=== PATIENT | female | born 1930 | race Caucasian/White ===

== ENCOUNTER 2017-10-11 22:57 | Emergency (ER) | payer MEDICARE, BC ==
[2017-10-12] MEDS: MECLIZINE 12.5 MG TAB PO (00:49)
== END 2017-10-12 02:34 | disposition home or self-care (01) ==
LOC: E/R 22:57
DX: R42 Dizziness and giddiness (principal); R40.2252 Coma scale, best verbal response, oriented, at arrival to emergency department; H60.21 Malignant otitis externa, right ear; H66.91 Otitis media, unspecified, right ear; S49.92XA Unspecified injury of left shoulder and upper arm, initial encounter; S70.01XA Contusion of right hip, initial encounter; E03.9 Hypothyroidism, unspecified; J45.909 Unspecified asthma, uncomplicated; R40.2142 Coma scale, eyes open, spontaneous, at arrival to emergency department; R40.2362 Coma scale, best motor response, obeys commands, at arrival to emergency department; W18.39XA Other fall on same level, initial encounter; Y92.9 Unspecified place or not applicable; Z79.84 Long term (current) use of oral hypoglycemic drugs; Z79.01 Long term (current) use of anticoagulants
CPT/HCPCS: 70450; 73060; 73510; 99284-25

== ENCOUNTER 2018-11-24 23:23 | Inpatient (IN) | payer MEDICARE, BC ==
[2018-11-25 01:56] LABS: ADD MAN DIFF? NO
[2018-11-25 01:57] LABS: WHITE BLOOD COUNT 11.4 10^3/ul (4.8-10.8)
[2018-11-25 01:57] LABS: BASOPHILS % 0.4 % (0.0-2.0); EOSINOPHILS % 0.3 % (0.0-7.0); HEMATOCRIT 33.8 % (37.0-47.0); LYMPHOCYTES # 0.8 10^3/ul (0.8-2.9); LYMPHOCYTES % 7.1 % (15.0-51.0); MEAN CORPUSCULAR HEMOGLOBIN 31.9 pg (29.0-33.0); MEAN CORPUSCULAR HGB CONC 32.5 g/dl (32.0-37.0); MEAN PLATELET VOLUME 10.8 fl (7.4-10.4); MONOCYTES % 8.8 % (0.0-11.0); NEUTROPHIL # 9.4 10^3/ul (1.6-7.5); NEUTROPHILS % 82.3 % (39.0-77.0); PLATELET COUNT 256 10^3/UL (140-415); RED BLOOD COUNT 3.45 10^6/ul (4.20-5.40); RED CELL DISTRIBUTION WIDTH 13.4 % (11.5-14.5)
[2018-11-25 02:14] LABS: ALANINE AMINOTRANSFERASE 26 IU/L (13-69); ALBUMIN 3.7 g/dl (3.3-4.9); ALBUMIN/GLOBULIN RATIO 0.97; ALKALINE PHOSPHATASE 106 IU/L (42-121); ANION GAP 10 (5-13); ASPARTATE AMINO TRANSFERASE 33 IU/L (15-46); BILIRUBIN,INDIRECT 0.3 mg/dl (0-1.1); BILIRUBIN,TOTAL 0.3 mg/dl (0.2-1.3); BLOOD UREA NITROGEN 67 mg/dl (7-20); CALCIUM 9.5 mg/dl (8.4-10.2); CARBON DIOXIDE 33 mmol/L (21-31); CHLORIDE 99 mmol/L (97-110); CREATININE 1.76 mg/dl (0.44-1.00); GLUCOSE 175 mg/dl (70-220); SODIUM 142 mmol/L (135-144); TOTAL PROTEIN 7.5 g/dl (6.1-8.1)
[2018-11-25 02:26] LABS: B-TYPE NATRIURETIC PEPTIDE 11900 PG/ML (0-450); TROPONIN-I < 0.012 ng/ml (0.000-0.120)
[2018-11-25] MEDS: FUROSEMIDE 40 MG INJ IV ×3 (03:00→03:27)
[2018-11-25] MEDS ORDERED: ALBUTEROL/IPRATROPIUM (NEB) 3 ML AMP HHN (05:00)
[2018-11-25] MEDS ORDERED: NACL 0.9% 3 ML SYG IV (05:00)
[2018-11-25] MEDS ORDERED: NITROGLYCERIN (SL) 0.4 MG TAB SL (05:00)
[2018-11-25] MEDS ORDERED: GLUCOSE GEL 15 GRAM TUBE PO ×2 (05:30)
[2018-11-25] MEDS ORDERED: GLUCAGON 1 MG INJ IM (05:30)
[2018-11-25] MEDS ORDERED: GLUCOSE GEL 15 GRAM TUBE BUCCAL (05:30)
[2018-11-25] MEDS ORDERED: DEXTROSE 50% 50 ML SYRINGE IV (05:30)
[2018-11-25 05:56] LABS: CREATINE KINASE 21 IU/L (23-200)
[2018-11-25 06:07] LABS: CK-MB 0.42 ng/ml (0.0-2.4); TROPONIN-I 0.025 ng/ml (0.000-0.120)
[2018-11-25 06:26] LABS: THYROID STIMULATING HORMONE 0.942 MIU/L (0.465-4.680)
[2018-11-25 06:33] LABS: INR 1.69; PT RATIO 1.6
[2018-11-25 06:34] LABS: PARTIAL THROMBOPLASTIN TIME 44.7 Sec (23.0-35.0)
[2018-11-25] MEDS: FUROSEMIDE 20 MG TAB PO ×2 (07:00→17:44)
[2018-11-25] MEDS: PANTOPRAZOLE (EC) 40 MG TAB PO (07:17)
[2018-11-25 07:30] LABS: IRON 23 ug/dl (35-150)
[2018-11-25 07:39] LABS: % IRON SATURATION 12 % SAT (22-52); TOTAL IRON BINDING CAPACITY 196 ug/dl (241-421)
[2018-11-25] MEDS ORDERED: FUROSEMIDE 20 MG TAB PO (09:00)
[2018-11-25] MEDS: LEVOTHYROXINE 75 MCG TAB PO (09:07)
[2018-11-25] MEDS: MECLIZINE 25 MG TAB PO ×3 (09:07→22:28)
[2018-11-25] MEDS: FERROUS SULFATE (EC) 325 MG TAB PO ×2 (09:07→22:28)
[2018-11-25] MEDS: POLYETHYLENE GLYCOL 17 GM PACKET PO (09:07)
[2018-11-25] MEDS: DOCUSATE SODIUM 250 MG CAP PO (09:07)
[2018-11-25] MEDS: HEPARIN 5,000 UNIT/1 ML VIAL SC ×2 (09:19→22:31)
[2018-11-25] MEDS: SOTALOL 80 MG TAB PO ×2 (09:29→22:29)
[2018-11-25] MEDS: LUBIPROSTONE 24 MCG CAP PO ×2 (09:29→17:43)
[2018-11-25] MEDS: INSULIN ASPART [NOVOLOG] 3 ML PEN SC ×4 (09:42→21:00)
[2018-11-25 10:43] LABS: CREATINE KINASE < 20 IU/L (23-200)
[2018-11-25 10:53] LABS: CK-MB 0.44 ng/ml (0.0-2.4); TROPONIN-I 0.015 ng/ml (0.000-0.120)
[2018-11-25] MEDS: DOCUSATE SODIUM 10 MG/ML (10ML CUP) PO (14:31)
[2018-11-25 15:33] LABS: SODIUM,URINE RANDOM < 13 mmol/L (30-90)
[2018-11-25 15:35] LABS: CREATININE,URINE RANDOM 66.83 mg/dl (20-320); PROTEIN/CREAT RATIO 0.31 RATIO
[2018-11-25] MEDS ORDERED: HYPROMELLOSE OP (16:30)
[2018-11-25] MEDS ORDERED: GLYCERIN OP (16:30)
[2018-11-25] MEDS ORDERED: PEG OP (16:30)
[2018-11-25] MEDS: WARFARIN 3 MG TAB PO (16:45)
[2018-11-25] MEDS: GENTAMICIN 0.3% 5 ML OPH LEFT EYE ×2 (17:00→22:29)
[2018-11-25] MEDS: APIXABAN 5 MG TABLET PO (22:28)
[2018-11-25] MEDS: PATIENT'S OWN MEDICATION BOTH EYES ×2 (22:30)
[2018-11-25] MEDS: INSULIN GLARGINE [LANTus] (100 UNITS/ML) SYG SC (22:52)
[2018-11-26] MEDS: GENTAMICIN 0.3% 5 ML OPH LEFT EYE ×3 (00:56→09:45)
[2018-11-26] MEDS: ACCU-CHEK XX (02:00)
[2018-11-26] MEDS: BENZONATATE 100 MG CAP PO ×2 (03:35→09:49)
[2018-11-26] MEDS: ALBUTEROL/IPRATROPIUM (NEB) 3 ML AMP HHN ×4 (04:30→20:17)
[2018-11-26] MEDS: ACETYLCYSTEINE 20% 4 ML VIAL NEB ×4 (04:41→20:17)
[2018-11-26] MEDS: PANTOPRAZOLE (EC) 40 MG TAB PO (05:10)
[2018-11-26] MEDS: LEVOTHYROXINE 75 MCG TAB PO (05:10)
[2018-11-26 05:57] LABS: HEMATOCRIT 32.6 % (37.0-47.0); HEMOGLOBIN 10.9 g/dl (12.0-16.0); MEAN CORPUSCULAR HEMOGLOBIN 32.2 pg (29.0-33.0); MEAN CORPUSCULAR HGB CONC 33.4 g/dl (32.0-37.0); MEAN CORPUSCULAR VOLUME 96.2 fl (82.0-101.0); PLATELET COUNT 277 10^3/UL (140-415); RED BLOOD COUNT 3.39 10^6/ul (4.20-5.40); RED CELL DISTRIBUTION WIDTH 13.4 % (11.5-14.5)
[2018-11-26 05:59] LABS: ADD MAN DIFF? YES; POSITIVE DIFF @See below
[2018-11-26 06:13] LABS: INR 1.86; PROTIME 21.5 Sec (11.9-14.9); PT RATIO 1.7
[2018-11-26 06:27] LABS: B-TYPE NATRIURETIC PEPTIDE 8970 PG/ML (0-450)
[2018-11-26] MEDS ORDERED: VANCOMYCIN IV PER PHARMACY XX (06:30)
[2018-11-26 06:33] LABS: URIC ACID 9.9 mg/dl (3.1-7.9)
[2018-11-26 06:36] LABS: ALANINE AMINOTRANSFERASE 21 IU/L (13-69); ALBUMIN 3.4 g/dl (3.3-4.9); ALBUMIN/GLOBULIN RATIO 0.91; ALKALINE PHOSPHATASE 126 IU/L (42-121); ANION GAP 10 (5-13); ASPARTATE AMINO TRANSFERASE 30 IU/L (15-46); BILIRUBIN,INDIRECT 0.4 mg/dl (0-1.1); BILIRUBIN,TOTAL 0.4 mg/dl (0.2-1.3); BLOOD UREA NITROGEN 49 mg/dl (7-20); CALCIUM 9.3 mg/dl (8.4-10.2); CARBON DIOXIDE 33 mmol/L (21-31); CHLORIDE 98 mmol/L (97-110); CHOL/HDL RATIO 4.2 RATIO; CHOLESTEROL 126 mg/dl (100-200); CREATININE 1.54 mg/dl (0.44-1.00); GLUCOSE 167 mg/dl (70-220); HDL CHOLESTEROL 30 mg/dl (33-92); LDL CHOLESTEROL,CALCULATED 71 mg/dl; MAGNESIUM 1.8 mg/dl (1.7-2.5); POTASSIUM 4.1 mmol/L (3.5-5.1); SODIUM 141 mmol/L (135-144); TOTAL PROTEIN 7.1 g/dl (6.1-8.1); TRIGLYCERIDES 125 mg/dl (0-149)
[2018-11-26 06:37] LABS: CREATINE KINASE < 20 IU/L (23-200)
[2018-11-26] MEDS: INSULIN ASPART [NOVOLOG] 3 ML PEN SC ×4 (08:00→21:00)
[2018-11-26] MEDS: LUBIPROSTONE 24 MCG CAP PO ×2 (08:00→17:28)
[2018-11-26] MEDS: VANCOMYCIN 1 GM 250 ML IVPB (08:48)
[2018-11-26] MEDS: FUROSEMIDE 20 MG INJ IV (08:50)
[2018-11-26] MEDS: HEPARIN 5,000 UNIT/1 ML VIAL SC (08:55)
[2018-11-26] MEDS: PATIENT'S OWN MEDICATION BOTH EYES ×3 (09:43→21:00)
[2018-11-26] MEDS: DOCUSATE SODIUM 10 MG/ML (10ML CUP) PO (09:48)
[2018-11-26] MEDS: POLYETHYLENE GLYCOL 17 GM PACKET PO (09:48)
[2018-11-26] MEDS: MECLIZINE 25 MG TAB PO ×3 (09:49→21:00)
[2018-11-26] MEDS: FERROUS SULFATE (EC) 325 MG TAB PO ×2 (09:49→21:00)
[2018-11-26] MEDS: APIXABAN 5 MG TABLET PO ×2 (09:49→21:00)
[2018-11-26] MEDS: SOTALOL 80 MG TAB PO ×2 (09:50→21:00)
[2018-11-26] MEDS: PIPER-TAZO 3.375 GM IV (PMX) 100 ML IVPB ×3 (09:52→22:02)
[2018-11-26] MEDS ORDERED: CARBOXYMETHYLCELLULOSE 0.5% 0.4 ML OPH BOTH EYES (10:00)
[2018-11-26] MEDS: LINAGLIPTIN 5 MG TABLET PO (10:30)
[2018-11-26] MEDS: ALLOPURINOL 100 MG TAB PO (10:30)
[2018-11-26] MEDS ORDERED: LEVOFLOXACIN 500 MG TAB PO (10:30)
[2018-11-26 10:45] LABS: ANISOCYTOSIS 1+ (0-0); BAND NEUTROPHILS % (M) 16 % (0-4); GIANT THROMBO% (M) 2 % (0-0); LYMPHOCYTES #M 0.5 10^3/ul (0.8-2.9); LYMPHOCYTES % (M) 4 % (15-51); MONOCYTE #M 1.3 10^3/ul (0.3-0.9); MONOCYTES % (M) 10 % (0-11); OVALOCYTES 1+ (0-0); PLATELET ESTIMATE NORMAL; PROMYELOCYTES #M 0.1 10^3/ul (0-0); PROMYELOCYTES % (M) 1 % (0-0); REACTIVE LYMPHOCYTES #M 0.1 10^3/ul (0.0-0.0); REACTIVE LYMPHOCYTES% (M) 1 % (0-0); SEG NEUT #M 9.1 10^3/ul (1.6-7.5); SEGMENTED NEUTROPHILS (M) % 68 % (39-77); SMUDGE%M 19 % (0-0)
[2018-11-26 11:00] LABS: AADO2 Arterial 15.6 mmHg (7.0-24.0); Arterial Base Excess 6.5 mmol/L (-3.0-3); Arterial Blood Gas Oxygen Sat 98.6 mmHG (95.0-100.0); Arterial COHb 0.3 % (0.0-3.0); Arterial HCO3 30.8 mmol/L (22.0-26.0); Arterial MetHb 0.3 % (0.0-1.5); Arterial pCO2 43.3 mmhg (35-45); MODE NASAL CANNULA; Site Right Brachial
[2018-11-26] MEDS: GENTAMICIN 0.3% 5 ML OPH RIGHT EYE ×3 (12:41→22:21)
[2018-11-26] MEDS ORDERED: metroNIDAZOLE 500 MG TAB PO (14:00)
[2018-11-26] MEDS: INSULIN GLARGINE [LANTus] (100 UNITS/ML) SYG SC (22:03)
[2018-11-26] MEDS: DEXTROSE 5%-0.45% NACL 1,000 ML IV (22:21)
[2018-11-27] MEDS: ALBUTEROL/IPRATROPIUM (NEB) 3 ML AMP HHN ×6 (01:25→20:21)
[2018-11-27] MEDS: ACETYLCYSTEINE 20% 4 ML VIAL NEB (01:25)
[2018-11-27] MEDS: GENTAMICIN 0.3% 5 ML OPH RIGHT EYE ×6 (01:42→21:19)
[2018-11-27] MEDS: ACCU-CHEK XX (02:00)
[2018-11-27] MEDS: INSULIN ASPART [NOVOLOG] 3 ML PEN SC ×5 (02:24→21:47)
[2018-11-27] MEDS: PANTOPRAZOLE (EC) 40 MG TAB PO (06:00)
[2018-11-27] MEDS: PIPER-TAZO 3.375 GM IV (PMX) 100 ML IVPB ×3 (06:25→21:20)
[2018-11-27 06:27] LABS: ADD MAN DIFF? NO
[2018-11-27 06:31] LABS: BASOPHILS % 0.2 % (0.0-2.0); EOSINOPHILS % 0.2 % (0.0-7.0); HEMATOCRIT 33.9 % (37.0-47.0); HEMOGLOBIN 10.9 g/dl (12.0-16.0); LYMPHOCYTES % 10.7 % (15.0-51.0); MEAN CORPUSCULAR HEMOGLOBIN 31.1 pg (29.0-33.0); MEAN CORPUSCULAR HGB CONC 32.2 g/dl (32.0-37.0); MEAN CORPUSCULAR VOLUME 96.6 fl (82.0-101.0); MEAN PLATELET VOLUME 11.1 fl (7.4-10.4); MONOCYTE # 0.6 10^3/ul (0.3-0.9); MONOCYTES % 6.1 % (0.0-11.0); NEUTROPHIL # 7.8 10^3/ul (1.6-7.5); PLATELET COUNT 275 10^3/UL (140-415); RED BLOOD COUNT 3.51 10^6/ul (4.20-5.40); RED CELL DISTRIBUTION WIDTH 13.6 % (11.5-14.5)
[2018-11-27 06:31] LABS: WHITE BLOOD COUNT 9.5 10^3/ul (4.8-10.8)
[2018-11-27] MEDS: LEVOTHYROXINE 75 MCG TAB PO (06:45)
[2018-11-27 07:15] LABS: ANION GAP 12 (5-13); BLOOD UREA NITROGEN 55 mg/dl (7-20); CALCIUM 8.8 mg/dl (8.4-10.2); CARBON DIOXIDE 29 mmol/L (21-31); CHLORIDE 105 mmol/L (97-110); GLUCOSE 132 mg/dl (70-220); POTASSIUM 3.4 mmol/L (3.5-5.1); SODIUM 146 mmol/L (135-144)
[2018-11-27] MEDS: LUBIPROSTONE 24 MCG CAP PO ×2 (08:00→18:59)
[2018-11-27] MEDS: PATIENT'S OWN MEDICATION BOTH EYES ×3 (09:00→21:20)
[2018-11-27] MEDS: SOTALOL 80 MG TAB PO ×2 (10:45→21:20)
[2018-11-27] MEDS: POLYETHYLENE GLYCOL 17 GM PACKET PO (10:46)
[2018-11-27] MEDS: APIXABAN 5 MG TABLET PO ×2 (10:46→21:21)
[2018-11-27] MEDS: ALLOPURINOL 100 MG TAB PO (10:46)
[2018-11-27] MEDS: FERROUS SULFATE (EC) 325 MG TAB PO ×2 (10:47→21:21)
[2018-11-27] MEDS: DOCUSATE SODIUM 10 MG/ML (10ML CUP) PO (10:47)
[2018-11-27] MEDS: MECLIZINE 25 MG TAB PO ×3 (10:47→21:00)
[2018-11-27] MEDS: LINAGLIPTIN 5 MG TABLET PO (10:47)
[2018-11-27] MEDS: POTASSIUM CHLORIDE (SR) 20 MEQ TAB PO (12:48)
[2018-11-27] MEDS: DEXTROSE 5%-0.45% NACL 500 ML IV (12:50)
[2018-11-27] MEDS: INSULIN GLARGINE [LANTus] (100 UNITS/ML) SYG SC (21:47)
[2018-11-27] MEDS: ACETAMINOPHEN 325 MG TAB PO (23:12)
[2018-11-28] MEDS: GENTAMICIN 0.3% 5 ML OPH RIGHT EYE ×6 (01:00→20:19)
[2018-11-28] MEDS: DEXTROSE 5%-0.45% NACL 500 ML IV ×3 (01:30→18:11)
[2018-11-28] MEDS: ALBUTEROL/IPRATROPIUM (NEB) 3 ML AMP HHN ×6 (01:52→21:08)
[2018-11-28] MEDS: ACCU-CHEK XX (02:00)
[2018-11-28] MEDS: PIPER-TAZO 3.375 GM IV (PMX) 100 ML IVPB ×3 (05:05→20:17)
[2018-11-28] MEDS: PANTOPRAZOLE (EC) 40 MG TAB PO (05:05)
[2018-11-28] MEDS: LEVOTHYROXINE 75 MCG TAB PO (05:05)
[2018-11-28 06:12] LABS: ADD MAN DIFF? NO
[2018-11-28 06:17] LABS: BASOPHIL # 0.1 10^3/ul (0.0-0.1); BASOPHILS % 0.6 % (0.0-2.0); EOSINOPHILS # 0.1 10^3/ul (0.0-0.5); EOSINOPHILS % 0.7 % (0.0-7.0); HEMATOCRIT 31.5 % (37.0-47.0); HEMOGLOBIN 9.9 g/dl (12.0-16.0); LYMPHOCYTES # 0.9 10^3/ul (0.8-2.9); LYMPHOCYTES % 9.5 % (15.0-51.0); MEAN CORPUSCULAR HEMOGLOBIN 31.6 pg (29.0-33.0); MEAN CORPUSCULAR HGB CONC 31.4 g/dl (32.0-37.0); MEAN CORPUSCULAR VOLUME 100.6 fl (82.0-101.0); MONOCYTE # 0.6 10^3/ul (0.3-0.9); MONOCYTES % 7.1 % (0.0-11.0); NEUTROPHIL # 7.3 10^3/ul (1.6-7.5); NEUTROPHILS % 80.9 % (39.0-77.0); PLATELET COUNT 269 10^3/UL (140-415); RED BLOOD COUNT 3.13 10^6/ul (4.20-5.40); RED CELL DISTRIBUTION WIDTH 13.7 % (11.5-14.5)
[2018-11-28] MEDS: INSULIN ASPART [NOVOLOG] 3 ML PEN SC ×4 (06:33→20:50)
[2018-11-28] MEDS: DEXTROSE 50% 50 ML SYRINGE IV (06:36)
[2018-11-28 07:12] LABS: ANION GAP 6 (5-13); BLOOD UREA NITROGEN 52 mg/dl (7-20); CALCIUM 8.8 mg/dl (8.4-10.2); CARBON DIOXIDE 29 mmol/L (21-31); CHLORIDE 107 mmol/L (97-110); CREATININE 1.54 mg/dl (0.44-1.00); GLUCOSE 61 mg/dl (70-220); POTASSIUM 3.6 mmol/L (3.5-5.1); SODIUM 142 mmol/L (135-144)
[2018-11-28] MEDS: DOCUSATE SODIUM 10 MG/ML (10ML CUP) PO (08:52)
[2018-11-28] MEDS: POLYETHYLENE GLYCOL 17 GM PACKET PO (08:52)
[2018-11-28] MEDS: ALLOPURINOL 100 MG TAB PO (08:52)
[2018-11-28] MEDS: APIXABAN 5 MG TABLET PO ×2 (08:52→20:18)
[2018-11-28] MEDS: LUBIPROSTONE 24 MCG CAP PO ×2 (08:52→18:49)
[2018-11-28] MEDS: SOTALOL 80 MG TAB PO ×2 (08:53→20:18)
[2018-11-28] MEDS: FERROUS SULFATE (EC) 325 MG TAB PO ×2 (08:54→20:17)
[2018-11-28] MEDS: LINAGLIPTIN 5 MG TABLET PO (08:54)
[2018-11-28] MEDS: PATIENT'S OWN MEDICATION BOTH EYES ×3 (09:00→20:19)
[2018-11-28] MEDS: MECLIZINE 25 MG TAB PO ×3 (10:33→20:18)
[2018-11-28] MEDS: VANCOMYCIN 750 MG (PMX) 250 ML IVPB (10:40)
[2018-11-28] MEDS ORDERED: POTASSIUM CHLORIDE (SR) 20 MEQ TAB PO (14:59)
[2018-11-28] MEDS: POTASSIUM CHLORIDE 100 ML IVPB (18:49)
[2018-11-28] MEDS: INSULIN GLARGINE [LANTus] (100 UNITS/ML) SYG SC (20:49)
[2018-11-28] MEDS: HYDROCODONE/HOMATROPINE 5ML CUP PO (21:20)
[2018-11-29] MEDS: GENTAMICIN 0.3% 5 ML OPH RIGHT EYE ×6 (01:00→21:00)
[2018-11-29] MEDS: ALBUTEROL/IPRATROPIUM (NEB) 3 ML AMP HHN ×6 (01:35→20:31)
[2018-11-29] MEDS: ACCU-CHEK XX (02:00)
[2018-11-29] MEDS: DEXTROSE 5%-0.45% NACL 500 ML IV ×2 (02:07→21:38)
[2018-11-29] MEDS: PIPER-TAZO 3.375 GM IV (PMX) 100 ML IVPB ×3 (05:32→21:48)
[2018-11-29] MEDS: LEVOTHYROXINE 75 MCG TAB PO (05:34)
[2018-11-29] MEDS: PANTOPRAZOLE (EC) 40 MG TAB PO (05:35)
[2018-11-29 06:26] LABS: ADD MAN DIFF? NO
[2018-11-29 06:31] LABS: BASOPHIL # 0.1 10^3/ul (0.0-0.1); BASOPHILS % 0.7 % (0.0-2.0); EOSINOPHILS # 0.1 10^3/ul (0.0-0.5); HEMATOCRIT 32.5 % (37.0-47.0); HEMOGLOBIN 10.3 g/dl (12.0-16.0); LYMPHOCYTES # 0.9 10^3/ul (0.8-2.9); LYMPHOCYTES % 12.4 % (15.0-51.0); MEAN CORPUSCULAR HEMOGLOBIN 31.7 pg (29.0-33.0); MEAN CORPUSCULAR HGB CONC 31.7 g/dl (32.0-37.0); MEAN PLATELET VOLUME 10.8 fl (7.4-10.4); MONOCYTE # 0.5 10^3/ul (0.3-0.9); MONOCYTES % 7.7 % (0.0-11.0); NEUTROPHIL # 5.3 10^3/ul (1.6-7.5); NEUTROPHILS % 75.9 % (39.0-77.0); PLATELET COUNT 270 10^3/UL (140-415); RED BLOOD COUNT 3.25 10^6/ul (4.20-5.40); RED CELL DISTRIBUTION WIDTH 13.6 % (11.5-14.5)
[2018-11-29] MEDS: INSULIN ASPART [NOVOLOG] 3 ML PEN SC ×4 (07:00→21:00)
[2018-11-29 07:17] LABS: ANION GAP 8 (5-13); BLOOD UREA NITROGEN 43 mg/dl (7-20); CALCIUM 8.9 mg/dl (8.4-10.2); CARBON DIOXIDE 30 mmol/L (21-31); CHLORIDE 108 mmol/L (97-110); CREATININE 1.63 mg/dl (0.44-1.00); GLUCOSE 65 mg/dl (70-220); POTASSIUM 3.6 mmol/L (3.5-5.1); SODIUM 146 mmol/L (135-144)
[2018-11-29] MEDS: LUBIPROSTONE 24 MCG CAP PO ×2 (08:00→18:00)
[2018-11-29] MEDS: DOCUSATE SODIUM 10 MG/ML (10ML CUP) PO (08:44)
[2018-11-29] MEDS: FUROSEMIDE 20 MG INJ IV ×2 (08:45→17:58)
[2018-11-29] MEDS: FERROUS SULFATE (EC) 325 MG TAB PO ×2 (08:46→21:35)
[2018-11-29] MEDS: SOTALOL 80 MG TAB PO ×2 (08:46→21:34)
[2018-11-29] MEDS: LINAGLIPTIN 5 MG TABLET PO (08:46)
[2018-11-29] MEDS: APIXABAN 5 MG TABLET PO ×2 (08:46→21:34)
[2018-11-29] MEDS: POLYETHYLENE GLYCOL 17 GM PACKET PO (08:46)
[2018-11-29] MEDS: ALLOPURINOL 100 MG TAB PO (08:46)
[2018-11-29] MEDS: MECLIZINE 25 MG TAB PO ×3 (08:46→21:36)
[2018-11-29] MEDS: PATIENT'S OWN MEDICATION BOTH EYES ×3 (08:47→21:00)
[2018-11-29] MEDS: BENZONATATE 100 MG CAP PO (17:32)
[2018-11-29] MEDS: INSULIN GLARGINE [LANTus] (100 UNITS/ML) SYG SC (20:00)
[2018-11-29] MEDS: ACETYLCYSTEINE 20% 4 ML VIAL NEB (20:43)
[2018-11-30] MEDS: ALBUTEROL/IPRATROPIUM (NEB) 3 ML AMP HHN ×6 (00:27→21:59)
[2018-11-30] MEDS: BENZONATATE 100 MG CAP PO (01:08)
[2018-11-30] MEDS: GENTAMICIN 0.3% 5 ML OPH RIGHT EYE ×6 (01:26→20:25)
[2018-11-30] MEDS: ACCU-CHEK XX (01:29)
[2018-11-30] MEDS: PANTOPRAZOLE (EC) 40 MG TAB PO (05:30)
[2018-11-30] MEDS: LEVOTHYROXINE 75 MCG TAB PO (05:30)
[2018-11-30] MEDS: FUROSEMIDE 20 MG INJ IV ×2 (05:30→17:50)
[2018-11-30] MEDS: PIPER-TAZO 3.375 GM IV (PMX) 100 ML IVPB ×3 (05:30→22:21)
[2018-11-30 06:22] LABS: ADD MAN DIFF? NO
[2018-11-30 06:23] LABS: BASOPHIL # 0.1 10^3/ul (0.0-0.1); BASOPHILS % 0.6 % (0.0-2.0); EOSINOPHILS # 0.1 10^3/ul (0.0-0.5); HEMATOCRIT 32.5 % (37.0-47.0); HEMOGLOBIN 10.5 g/dl (12.0-16.0); LYMPHOCYTES # 0.8 10^3/ul (0.8-2.9); MEAN CORPUSCULAR HEMOGLOBIN 31.9 pg (29.0-33.0); MEAN CORPUSCULAR HGB CONC 32.3 g/dl (32.0-37.0); MEAN CORPUSCULAR VOLUME 98.8 fl (82.0-101.0); MONOCYTE # 0.7 10^3/ul (0.3-0.9); MONOCYTES % 7.9 % (0.0-11.0); NEUTROPHIL # 6.5 10^3/ul (1.6-7.5); NEUTROPHILS % 78.1 % (39.0-77.0); PLATELET COUNT 288 10^3/UL (140-415); RED BLOOD COUNT 3.29 10^6/ul (4.20-5.40); RED CELL DISTRIBUTION WIDTH 13.5 % (11.5-14.5)
[2018-11-30 06:23] LABS: WHITE BLOOD COUNT 8.4 10^3/ul (4.8-10.8)
[2018-11-30 06:51] LABS: ANION GAP 9 (5-13); BLOOD UREA NITROGEN 36 mg/dl (7-20); CALCIUM 8.9 mg/dl (8.4-10.2); CARBON DIOXIDE 31 mmol/L (21-31); CHLORIDE 107 mmol/L (97-110); CREATININE 1.55 mg/dl (0.44-1.00); GLUCOSE 98 mg/dl (70-220); POTASSIUM 3.2 mmol/L (3.5-5.1); SODIUM 147 mmol/L (135-144)
[2018-11-30] MEDS: INSULIN ASPART [NOVOLOG] 3 ML PEN SC ×4 (07:30→20:27)
[2018-11-30] MEDS: ACETYLCYSTEINE 20% 4 ML VIAL NEB ×3 (09:00→21:59)
[2018-11-30] MEDS: MECLIZINE 25 MG TAB PO ×3 (09:00→21:37)
[2018-11-30] MEDS: FERROUS SULFATE (EC) 325 MG TAB PO ×2 (09:07→20:26)
[2018-11-30] MEDS: DOCUSATE SODIUM 10 MG/ML (10ML CUP) PO (09:07)
[2018-11-30] MEDS: SOTALOL 80 MG TAB PO ×2 (09:07→20:27)
[2018-11-30] MEDS: POLYETHYLENE GLYCOL 17 GM PACKET PO (09:08)
[2018-11-30] MEDS: LINAGLIPTIN 5 MG TABLET PO (09:08)
[2018-11-30] MEDS: ALLOPURINOL 100 MG TAB PO (09:08)
[2018-11-30] MEDS: APIXABAN 5 MG TABLET PO ×2 (09:08→20:25)
[2018-11-30] MEDS: VANCOMYCIN 750 MG (PMX) 250 ML IVPB (09:23)
[2018-11-30] MEDS: LUBIPROSTONE 24 MCG CAP PO ×2 (09:23→17:50)
[2018-11-30] MEDS: PATIENT'S OWN MEDICATION BOTH EYES ×3 (09:37→20:31)
[2018-11-30] MEDS: DEXTROSE 5%-0.45% NACL 500 ML IV (16:00)
[2018-11-30] MEDS: ONDANSETRON 4 MG INJ IV (16:21)
[2018-11-30] MEDS: TIOTROPIUM 18 MCG CAPSULE INHA DEV INH (17:50)
[2018-11-30] MEDS: POTASSIUM CHLORIDE 100 ML IVPB (20:23)
[2018-11-30] MEDS: INSULIN GLARGINE [LANTus] (100 UNITS/ML) SYG SC (20:24)
[2018-12-01] MEDS: POTASSIUM CHLORIDE 100 ML IVPB (00:14)
[2018-12-01] MEDS: GENTAMICIN 0.3% 5 ML OPH RIGHT EYE ×6 (00:14→20:54)
[2018-12-01] MEDS: ALBUTEROL/IPRATROPIUM (NEB) 3 ML AMP HHN ×6 (00:39→20:10)
[2018-12-01] MEDS: ACCU-CHEK XX (01:23)
[2018-12-01] MEDS: DEXTROSE 5%-0.45% NACL 500 ML IV ×3 (04:24→22:46)
[2018-12-01] MEDS: PIPER-TAZO 3.375 GM IV (PMX) 100 ML IVPB ×3 (05:49→22:44)
[2018-12-01] MEDS: PANTOPRAZOLE (EC) 40 MG TAB PO (05:49)
[2018-12-01] MEDS: FUROSEMIDE 20 MG INJ IV ×2 (05:54→17:55)
[2018-12-01 05:57] LABS: ADD MAN DIFF? NO
[2018-12-01] MEDS: LEVOTHYROXINE 75 MCG TAB PO (06:00)
[2018-12-01 06:01] LABS: BASOPHILS % 0.5 % (0.0-2.0); EOSINOPHILS % 0.4 % (0.0-7.0); HEMATOCRIT 30.2 % (37.0-47.0); HEMOGLOBIN 9.9 g/dl (12.0-16.0); LYMPHOCYTES % 12.5 % (15.0-51.0); MEAN CORPUSCULAR HEMOGLOBIN 32.2 pg (29.0-33.0); MEAN CORPUSCULAR HGB CONC 32.8 g/dl (32.0-37.0); MEAN CORPUSCULAR VOLUME 98.4 fl (82.0-101.0); MONOCYTE # 0.7 10^3/ul (0.3-0.9); NEUTROPHIL # 6.2 10^3/ul (1.6-7.5); NEUTROPHILS % 76.5 % (39.0-77.0); PLATELET COUNT 271 10^3/UL (140-415); RED BLOOD COUNT 3.07 10^6/ul (4.20-5.40); RED CELL DISTRIBUTION WIDTH 13.8 % (11.5-14.5)
[2018-12-01 06:01] LABS: WHITE BLOOD COUNT 8.2 10^3/ul (4.8-10.8)
[2018-12-01 06:46] LABS: ANION GAP 8 (5-13); BLOOD UREA NITROGEN 39 mg/dl (7-20); CALCIUM 8.3 mg/dl (8.4-10.2); CARBON DIOXIDE 30 mmol/L (21-31); CHLORIDE 108 mmol/L (97-110); CREATININE 1.95 mg/dl (0.44-1.00); GLUCOSE 81 mg/dl (70-220); MAGNESIUM 1.8 mg/dl (1.7-2.5); PHOSPHORUS 3.5 mg/dl (2.5-4.9); POTASSIUM 3.5 mmol/L (3.5-5.1); SODIUM 146 mmol/L (135-144)
[2018-12-01] MEDS: INSULIN ASPART [NOVOLOG] 3 ML PEN SC ×4 (07:30→20:54)
[2018-12-01] MEDS: PATIENT'S OWN MEDICATION BOTH EYES ×4 (08:16→20:52)
[2018-12-01] MEDS: DEXTROSE 50% 50 ML SYRINGE IV (08:24)
[2018-12-01] MEDS: ACETYLCYSTEINE 20% 4 ML VIAL NEB ×2 (08:52→20:10)
[2018-12-01] MEDS: DOCUSATE SODIUM 10 MG/ML (10ML CUP) PO (09:03)
[2018-12-01] MEDS: POLYETHYLENE GLYCOL 17 GM PACKET PO (09:03)
[2018-12-01] MEDS: FERROUS SULFATE (EC) 325 MG TAB PO ×2 (09:04→20:53)
[2018-12-01] MEDS: MECLIZINE 25 MG TAB PO ×3 (09:04→20:52)
[2018-12-01] MEDS: TIOTROPIUM 18 MCG CAPSULE INHA DEV INH (09:04)
[2018-12-01] MEDS: LINAGLIPTIN 5 MG TABLET PO (09:04)
[2018-12-01] MEDS: ALLOPURINOL 100 MG TAB PO (09:04)
[2018-12-01] MEDS: APIXABAN 5 MG TABLET PO ×2 (09:05→20:53)
[2018-12-01] MEDS: SOTALOL 80 MG TAB PO ×2 (09:06→20:54)
[2018-12-01] MEDS: LUBIPROSTONE 24 MCG CAP PO ×2 (09:09→17:54)
[2018-12-01] MEDS: INSULIN GLARGINE [LANTus] (100 UNITS/ML) SYG SC (20:57)
[2018-12-02] MEDS: ALBUTEROL/IPRATROPIUM (NEB) 3 ML AMP HHN ×6 (01:03→20:09)
[2018-12-02] MEDS: ACCU-CHEK XX (01:10)
[2018-12-02] MEDS: GENTAMICIN 0.3% 5 ML OPH RIGHT EYE ×6 (01:11→20:53)
[2018-12-02] MEDS: PIPER-TAZO 3.375 GM IV (PMX) 100 ML IVPB ×2 (06:21→13:37)
[2018-12-02] MEDS: PANTOPRAZOLE (EC) 40 MG TAB PO (06:21)
[2018-12-02] MEDS: FUROSEMIDE 20 MG INJ IV (06:21)
[2018-12-02] MEDS: LEVOTHYROXINE 75 MCG TAB PO (06:21)
[2018-12-02] MEDS: INSULIN ASPART [NOVOLOG] 3 ML PEN SC ×4 (08:13→20:50)
[2018-12-02] MEDS: LUBIPROSTONE 24 MCG CAP PO ×2 (09:21→17:32)
[2018-12-02] MEDS: LINAGLIPTIN 5 MG TABLET PO (09:22)
[2018-12-02] MEDS: ALLOPURINOL 100 MG TAB PO (09:22)
[2018-12-02] MEDS: MECLIZINE 25 MG TAB PO ×3 (09:22→20:45)
[2018-12-02] MEDS: DOCUSATE SODIUM 10 MG/ML (10ML CUP) PO (09:22)
[2018-12-02] MEDS: FERROUS SULFATE (EC) 325 MG TAB PO ×2 (09:22→20:45)
[2018-12-02] MEDS: PATIENT'S OWN MEDICATION BOTH EYES ×3 (09:22→20:53)
[2018-12-02] MEDS: TIOTROPIUM 18 MCG CAPSULE INHA DEV INH (09:22)
[2018-12-02] MEDS: POLYETHYLENE GLYCOL 17 GM PACKET PO (09:22)
[2018-12-02] MEDS: APIXABAN 5 MG TABLET PO ×2 (09:23→20:52)
[2018-12-02] MEDS: SOTALOL 80 MG TAB PO ×2 (09:23→20:46)
[2018-12-02 10:09] LABS: VANCOMYCIN,TROUGH 10.6 ug/ml (10.0-20.0)
[2018-12-02] MEDS: ACETYLCYSTEINE 20% 4 ML VIAL NEB ×2 (10:31→20:09)
[2018-12-02] MEDS: VANCOMYCIN 750 MG (PMX) 250 ML IVPB (11:30)
[2018-12-02] MEDS: metroNIDAZOLE 500 MG TAB PO ×2 (17:32→23:27)
[2018-12-02] MEDS: DOXYCYCLINE 100 MG TAB PO (20:45)
[2018-12-02] MEDS: HYDROCODONE/HOMATROPINE 5ML CUP PO (23:27)
[2018-12-03] MEDS: ALBUTEROL/IPRATROPIUM (NEB) 3 ML AMP HHN ×6 (00:20→20:27)
[2018-12-03] MEDS: GENTAMICIN 0.3% 5 ML OPH RIGHT EYE ×6 (01:00→20:33)
[2018-12-03] MEDS: ACCU-CHEK XX (02:00)
[2018-12-03] MEDS: PANTOPRAZOLE (EC) 40 MG TAB PO (05:17)
[2018-12-03] MEDS: metroNIDAZOLE 500 MG TAB PO ×3 (05:17→21:15)
[2018-12-03] MEDS: BENZONATATE 100 MG CAP PO (05:17)
[2018-12-03 05:55] LABS: ADD MAN DIFF? NO
[2018-12-03 05:58] LABS: BASOPHILS % 0.7 % (0.0-2.0); EOSINOPHILS # 0.1 10^3/ul (0.0-0.5); HEMATOCRIT 28.4 % (37.0-47.0); HEMOGLOBIN 9.2 g/dl (12.0-16.0); LYMPHOCYTES # 0.8 10^3/ul (0.8-2.9); LYMPHOCYTES % 13.5 % (15.0-51.0); MEAN CORPUSCULAR HEMOGLOBIN 31.8 pg (29.0-33.0); MEAN CORPUSCULAR HGB CONC 32.4 g/dl (32.0-37.0); MEAN CORPUSCULAR VOLUME 98.3 fl (82.0-101.0); MEAN PLATELET VOLUME 10.7 fl (7.4-10.4); MONOCYTE # 0.5 10^3/ul (0.3-0.9); MONOCYTES % 8.8 % (0.0-11.0); NEUTROPHIL # 4.5 10^3/ul (1.6-7.5); NEUTROPHILS % 73.8 % (39.0-77.0); PLATELET COUNT 272 10^3/UL (140-415); RED BLOOD COUNT 2.89 10^6/ul (4.20-5.40); RED CELL DISTRIBUTION WIDTH 14.2 % (11.5-14.5)
[2018-12-03 06:21] LABS: ANION GAP 9 (5-13); BLOOD UREA NITROGEN 33 mg/dl (7-20); CALCIUM 8.3 mg/dl (8.4-10.2); CARBON DIOXIDE 29 mmol/L (21-31); CHLORIDE 106 mmol/L (97-110); CREATININE 1.91 mg/dl (0.44-1.00); GLUCOSE 109 mg/dl (70-220); SODIUM 144 mmol/L (135-144)
[2018-12-03 06:38] LABS: POTASSIUM 2.9 mmol/L (3.5-5.1)
[2018-12-03] MEDS: LEVOTHYROXINE 75 MCG TAB PO (07:00)
[2018-12-03] MEDS: INSULIN ASPART [NOVOLOG] 3 ML PEN SC ×4 (07:30→20:36)
[2018-12-03] MEDS: LUBIPROSTONE 24 MCG CAP PO ×2 (08:00→17:43)
[2018-12-03] MEDS: ACETYLCYSTEINE 20% 4 ML VIAL NEB ×2 (08:14→20:27)
[2018-12-03] MEDS: MECLIZINE 25 MG TAB PO ×3 (09:29→20:32)
[2018-12-03] MEDS: POTASSIUM CHLORIDE 100 ML IVPB ×2 (09:29→17:31)
[2018-12-03] MEDS: SOTALOL 80 MG TAB PO ×2 (09:30→20:34)
[2018-12-03] MEDS: APIXABAN 5 MG TABLET PO ×2 (09:30→20:32)
[2018-12-03] MEDS: POLYETHYLENE GLYCOL 17 GM PACKET PO (09:30)
[2018-12-03] MEDS: DOCUSATE SODIUM 10 MG/ML (10ML CUP) PO (09:30)
[2018-12-03] MEDS: FERROUS SULFATE (EC) 325 MG TAB PO ×2 (09:30→20:32)
[2018-12-03] MEDS: FUROSEMIDE 20 MG TAB PO (09:30)
[2018-12-03] MEDS: LINAGLIPTIN 5 MG TABLET PO (09:30)
[2018-12-03] MEDS: PATIENT'S OWN MEDICATION BOTH EYES ×3 (09:31→20:33)
[2018-12-03] MEDS: ALLOPURINOL 100 MG TAB PO (09:31)
[2018-12-03] MEDS: TIOTROPIUM 18 MCG CAPSULE INHA DEV INH (09:31)
[2018-12-03] MEDS: DOXYCYCLINE 100 MG TAB PO ×2 (09:31→20:32)
[2018-12-03] MEDS: MEGESTROL (40 MG/ML) 10ML CUP PO (10:30)
[2018-12-03] MEDS ORDERED: MEGESTROL 40 MG TAB PO (10:30)
[2018-12-03] MEDS ORDERED: POTASSIUM CHLORIDE 50 ML IVPB (11:00)
[2018-12-03] MEDS ORDERED: POTASSIUM CHLORIDE (SR) 20 MEQ TAB PO (16:07)
[2018-12-03] MEDS: POTASSIUM CHLORIDE 50 ML IVPB ×3 (20:30→23:20)
[2018-12-04] MEDS: ALBUTEROL/IPRATROPIUM (NEB) 3 ML AMP HHN ×5 (00:42→16:56)
[2018-12-04] MEDS: GENTAMICIN 0.3% 5 ML OPH RIGHT EYE ×5 (00:53→17:28)
[2018-12-04] MEDS: ACCU-CHEK XX (01:12)
[2018-12-04 01:25] LABS: POTASSIUM 4.2 mmol/L (3.5-5.1)
[2018-12-04 05:28] LABS: ADD MAN DIFF? NO
[2018-12-04 05:31] LABS: WHITE BLOOD COUNT 6.3 10^3/ul (4.8-10.8)
[2018-12-04 05:31] LABS: BASOPHIL # 0.1 10^3/ul (0.0-0.1); BASOPHILS % 0.8 % (0.0-2.0); EOSINOPHILS # 0.1 10^3/ul (0.0-0.5); EOSINOPHILS % 1.4 % (0.0-7.0); HEMATOCRIT 29.3 % (37.0-47.0); HEMOGLOBIN 9.4 g/dl (12.0-16.0); LYMPHOCYTES # 0.9 10^3/ul (0.8-2.9); LYMPHOCYTES % 13.8 % (15.0-51.0); MEAN CORPUSCULAR HEMOGLOBIN 31.8 pg (29.0-33.0); MEAN CORPUSCULAR HGB CONC 32.1 g/dl (32.0-37.0); MEAN PLATELET VOLUME 10.6 fl (7.4-10.4); MONOCYTE # 0.6 10^3/ul (0.3-0.9); NEUTROPHIL # 4.5 10^3/ul (1.6-7.5); NEUTROPHILS % 72.4 % (39.0-77.0); PLATELET COUNT 273 10^3/UL (140-415); RED BLOOD COUNT 2.96 10^6/ul (4.20-5.40); RED CELL DISTRIBUTION WIDTH 14.5 % (11.5-14.5)
[2018-12-04] MEDS: PANTOPRAZOLE (EC) 40 MG TAB PO (05:46)
[2018-12-04] MEDS: metroNIDAZOLE 500 MG TAB PO ×2 (05:46→13:54)
[2018-12-04 05:51] LABS: ANION GAP 8 (5-13); BLOOD UREA NITROGEN 31 mg/dl (7-20); CALCIUM 8.5 mg/dl (8.4-10.2); CARBON DIOXIDE 26 mmol/L (21-31); CHLORIDE 110 mmol/L (97-110); CREATININE 1.67 mg/dl (0.44-1.00); GLUCOSE 130 mg/dl (70-220); MAGNESIUM 1.9 mg/dl (1.7-2.5); SODIUM 144 mmol/L (135-144)
[2018-12-04] MEDS: LEVOTHYROXINE 75 MCG TAB PO (06:00)
[2018-12-04] MEDS: INSULIN ASPART [NOVOLOG] 3 ML PEN SC ×3 (07:30→17:30)
[2018-12-04] MEDS: DOXYCYCLINE 100 MG TAB PO (08:49)
[2018-12-04] MEDS: APIXABAN 5 MG TABLET PO (08:51)
[2018-12-04] MEDS: TIOTROPIUM 18 MCG CAPSULE INHA DEV INH (08:52)
[2018-12-04] MEDS: MECLIZINE 25 MG TAB PO ×2 (08:52→13:54)
[2018-12-04] MEDS: FUROSEMIDE 20 MG TAB PO (08:53)
[2018-12-04] MEDS: LINAGLIPTIN 5 MG TABLET PO (08:54)
[2018-12-04] MEDS: FERROUS SULFATE (EC) 325 MG TAB PO (08:54)
[2018-12-04] MEDS: ALLOPURINOL 100 MG TAB PO (08:54)
[2018-12-04] MEDS: DOCUSATE SODIUM 10 MG/ML (10ML CUP) PO (08:55)
[2018-12-04] MEDS: MEGESTROL (40 MG/ML) 10ML CUP PO (08:55)
[2018-12-04] MEDS: SOTALOL 80 MG TAB PO (08:56)
[2018-12-04] MEDS: PATIENT'S OWN MEDICATION BOTH EYES (08:57)
[2018-12-04] MEDS: POLYETHYLENE GLYCOL 17 GM PACKET PO (08:58)
[2018-12-04] MEDS: ACETYLCYSTEINE 20% 4 ML VIAL NEB (09:00)
[2018-12-04] MEDS: LUBIPROSTONE 24 MCG CAP PO ×2 (09:05→17:27)
== END 2018-12-04 18:30 | DRG 291 ==
LOC: PP2 11-29 19:21 → E/R 23:23 → 6WM 11-25 03:14
PROC: 4A033R1 Measurement of Arterial Saturation, Peripheral, Percutaneous Approach (ICD-10-PCS; principal; 2018-11-26)
DX: I13.0 Hypertensive heart and chronic kidney disease with heart failure and stage 1 through stage 4 chronic kidney disease, or unspecified chronic kidney disease (principal); J96.21 Acute and chronic respiratory failure with hypoxia; I50.33 Acute on chronic diastolic (congestive) heart failure; J69.0 Pneumonitis due to inhalation of food and vomit; G92 Toxic encephalopathy; N17.9 Acute kidney failure, unspecified; Z68.1 Body mass index [BMI] 19.9 or less, adult; I48.0 Paroxysmal atrial fibrillation; E11.22 Type 2 diabetes mellitus with diabetic chronic kidney disease; E03.9 Hypothyroidism, unspecified; D63.1 Anemia in chronic kidney disease; J45.909 Unspecified asthma, uncomplicated; I48.2 Chronic atrial fibrillation; E87.6 Hypokalemia; N18.3 Chronic kidney disease, stage 3 (moderate); D53.9 Nutritional anemia, unspecified; M10.9 Gout, unspecified; J43.9 Emphysema, unspecified; H40.9 Unspecified glaucoma; Z99.81 Dependence on supplemental oxygen; Z79.01 Long term (current) use of anticoagulants; Z95.0 Presence of cardiac pacemaker
CPT/HCPCS: 36415; 36600; 70360; 71045; 71250; 76775; 80048; 80053; 80061; 80202; 81003; 82306; 82550; 82553; 82570; 82607; 82652; 82728; 82803; 82962; 83036; 83540; 83735; 83880; 84100; 84132; 84300; 84443; 84484; 84560; 85025; 85610; 85730; 87081; 89190; 92526; 92610; 93005; 93306; 94640; 94664; 97116; 97162; 97530; 99285-25; G0378

== ENCOUNTER 2018-12-04 18:51 | Inpatient (IN) | payer MEDICARE, BC ==
[2018-12-04] MEDS: metroNIDAZOLE 500 MG TAB PO (22:00)
[2018-12-04] MEDS ORDERED: DEXTROSE 50% 50 ML SYRINGE IV ×2 (22:30)
[2018-12-04] MEDS ORDERED: GLUCOSE GEL 15 GRAM TUBE PO ×2 (22:30)
[2018-12-04] MEDS ORDERED: GLUCOSE GEL 15 GRAM TUBE BUCCAL (22:30)
[2018-12-04] MEDS ORDERED: GLUCAGON 1 MG INJ IM (22:30)
[2018-12-04] MEDS ORDERED: CARBOXYMETHYLCELLULOSE 0.5% 0.4 ML OPH BOTH EYES (23:00)
[2018-12-04] MEDS ORDERED: ALBUTEROL/IPRATROPIUM (NEB) 3 ML AMP HHN (23:00)
[2018-12-05] MEDS: GENTAMICIN 0.3% 5 ML OPH RIGHT EYE ×6 (01:00→21:00)
[2018-12-05] MEDS: ALBUTEROL/IPRATROPIUM (NEB) 3 ML AMP HHN ×6 (01:44→20:23)
[2018-12-05] MEDS: ACCUCHECK AT 2AM (Patients on SS coverage) XX (02:46)
[2018-12-05] MEDS: LANSOPRAZOLE 30 MG CAP PO ×2 (06:15→18:21)
[2018-12-05] MEDS: metroNIDAZOLE 500 MG TAB PO ×3 (06:15→22:00)
[2018-12-05] MEDS: LEVOTHYROXINE 75 MCG TAB PO (06:15)
[2018-12-05] MEDS: FERROUS SULFATE (EC) 325 MG TAB PO ×2 (06:15→18:21)
[2018-12-05] MEDS: Insulin NOVOLOG SS MILD Algorithm (SS with meals and bedtime) SC ×4 (07:05→20:53)
[2018-12-05] MEDS: LUBIPROSTONE 24 MCG CAP PO ×3 (07:35→17:35)
[2018-12-05 08:27] LABS: ADD MAN DIFF? NO
[2018-12-05 08:35] LABS: BASOPHILS % 0.7 % (0.0-2.0); EOSINOPHILS # 0.1 10^3/ul (0.0-0.5); EOSINOPHILS % 1.8 % (0.0-7.0); HEMATOCRIT 29.8 % (37.0-47.0); HEMOGLOBIN 9.6 g/dl (12.0-16.0); LYMPHOCYTES # 0.8 10^3/ul (0.8-2.9); LYMPHOCYTES % 13.8 % (15.0-51.0); MEAN CORPUSCULAR HEMOGLOBIN 31.9 pg (29.0-33.0); MEAN CORPUSCULAR HGB CONC 32.2 g/dl (32.0-37.0); MEAN PLATELET VOLUME 10.6 fl (7.4-10.4); MONOCYTE # 0.6 10^3/ul (0.3-0.9); MONOCYTES % 10.1 % (0.0-11.0); PLATELET COUNT 287 10^3/UL (140-415); RED BLOOD COUNT 3.01 10^6/ul (4.20-5.40); RED CELL DISTRIBUTION WIDTH 14.7 % (11.5-14.5)
[2018-12-05 08:35] LABS: WHITE BLOOD COUNT 5.6 10^3/ul (4.8-10.8)
[2018-12-05 08:58] LABS: ALANINE AMINOTRANSFERASE 21 IU/L (13-69); ALBUMIN 2.7 g/dl (3.3-4.9); ALBUMIN/GLOBULIN RATIO 0.84; ALKALINE PHOSPHATASE 87 IU/L (42-121); ANION GAP 9 (5-13); ASPARTATE AMINO TRANSFERASE 22 IU/L (15-46); BILIRUBIN,INDIRECT 0.3 mg/dl (0-1.1); BILIRUBIN,TOTAL 0.3 mg/dl (0.2-1.3); BLOOD UREA NITROGEN 22 mg/dl (7-20); CALCIUM 8.7 mg/dl (8.4-10.2); CARBON DIOXIDE 24 mmol/L (21-31); CHLORIDE 111 mmol/L (97-110); CREATININE 1.28 mg/dl (0.44-1.00); GLUCOSE 110 mg/dl (70-220); POTASSIUM 3.6 mmol/L (3.5-5.1); SODIUM 144 mmol/L (135-144); TOTAL PROTEIN 5.9 g/dl (6.1-8.1)
[2018-12-05] MEDS ORDERED: CYCLOSPORIN BOTH EYES (09:00)
[2018-12-05] MEDS: MECLIZINE 25 MG TAB PO ×3 (09:00→21:00)
[2018-12-05 10:14] LABS: UR CLARITY CLEAR (CLEAR); UR COLOR YELLOW (YELLOW); UR GLUCOSE (Dip) NEGATIVE (NEGATIVE); UR KETONES (Dip) NEGATIVE (NEGATIVE); UR TOTAL PROTEIN (Dip) NEGATIVE (NEGATIVE); URINE SPECIFIC GRAVITY (Dip) 1.015 (1.003-1.030)
[2018-12-05 10:15] LABS: ADD UMIC YES; UR BILIRUBIN (Dip) NEGATIVE (NEGATIVE); UR BLOOD (Dip) 1+ mg/dL (NEGATIVE); UR LEUKOCYTE ESTERASE (Dip) NEGATIVE Leu/ul (NEGATIVE); UR NITRITE (Dip) NEGATIVE (NEGATIVE); UR UROBILINOGEN (Dip) 0.2 E.U./dL mg/dL (NEGATIVE)
[2018-12-05 10:22] LABS: UR SQUAMOUS EPITHELIAL CELL FEW /HPF (FEW)
[2018-12-05] MEDS: LINAGLIPTIN 5 MG TABLET PO (10:37)
[2018-12-05] MEDS: POLYETHYLENE GLYCOL 17 GM PACKET PO (10:37)
[2018-12-05] MEDS: MEGESTROL (40 MG/ML) 10ML CUP PO (10:37)
[2018-12-05] MEDS: DOXYCYCLINE 100 MG TAB PO ×2 (10:37→21:00)
[2018-12-05] MEDS: APIXABAN 5 MG TABLET PO ×2 (10:38→21:00)
[2018-12-05] MEDS: SOTALOL 80 MG TAB PO ×2 (10:38→21:00)
[2018-12-05] MEDS: ALLOPURINOL 100 MG TAB PO (10:38)
[2018-12-05] MEDS: FUROSEMIDE 20 MG TAB PO (10:39)
[2018-12-05] MEDS: TIOTROPIUM 18 MCG CAPSULE INHA DEV INH (10:43)
[2018-12-05] MEDS ORDERED: BISACODYL 10 MG SUPP PR (17:00)
[2018-12-05] MEDS: LACTULOSE 30ML CUP PO (18:21)
[2018-12-05] MEDS: LATANOPROST 0.005% 2.5 ML OPH BOTH EYES (21:00)
[2018-12-05] MEDS ORDERED: TRAVOPROST 0.004% BOTH EYES (21:00)
[2018-12-05] MEDS: DOCUSATE SODIUM 10 MG/ML (10ML CUP) PO (21:00)
[2018-12-05] MEDS: SENNA TAB PO (21:00)
[2018-12-06] MEDS: ALBUTEROL/IPRATROPIUM (NEB) 3 ML AMP HHN ×6 (00:59→20:29)
[2018-12-06] MEDS: GENTAMICIN 0.3% 5 ML OPH RIGHT EYE ×6 (01:00→21:06)
[2018-12-06] MEDS: ACCUCHECK AT 2AM (Patients on SS coverage) XX (02:00)
[2018-12-06] MEDS: LEVOTHYROXINE 75 MCG TAB PO (06:41)
[2018-12-06] MEDS: metroNIDAZOLE 500 MG TAB PO ×3 (06:42→21:11)
[2018-12-06] MEDS: FERROUS SULFATE (EC) 325 MG TAB PO ×2 (06:44→17:37)
[2018-12-06] MEDS: LANSOPRAZOLE 30 MG CAP PO ×2 (06:49→17:37)
[2018-12-06] MEDS: LINAGLIPTIN 5 MG TABLET PO (08:25)
[2018-12-06] MEDS: LUBIPROSTONE 24 MCG CAP PO ×2 (08:25→17:37)
[2018-12-06] MEDS: Insulin NOVOLOG SS MILD Algorithm (SS with meals and bedtime) SC ×4 (08:26→21:00)
[2018-12-06] MEDS: CYCLOSPORINE 0.05% OPH DROPERETTE BOTH EYES ×2 (10:44→21:06)
[2018-12-06] MEDS: POLYETHYLENE GLYCOL 17 GM PACKET PO (10:44)
[2018-12-06] MEDS: SOTALOL 80 MG TAB PO ×2 (10:45→21:07)
[2018-12-06] MEDS: DOCUSATE SODIUM 10 MG/ML (10ML CUP) PO ×2 (10:45→21:12)
[2018-12-06] MEDS: MEGESTROL (40 MG/ML) 10ML CUP PO (10:45)
[2018-12-06] MEDS: DOXYCYCLINE 100 MG TAB PO ×2 (10:45→21:06)
[2018-12-06] MEDS: TIOTROPIUM 18 MCG CAPSULE INHA DEV INH (10:45)
[2018-12-06] MEDS: FUROSEMIDE 20 MG TAB PO (10:46)
[2018-12-06] MEDS: APIXABAN 5 MG TABLET PO ×2 (10:46→21:07)
[2018-12-06] MEDS: ALLOPURINOL 100 MG TAB PO (10:46)
[2018-12-06] MEDS: MECLIZINE 25 MG TAB PO ×3 (10:46→21:06)
[2018-12-06] MEDS: SENNA TAB PO (21:06)
[2018-12-06] MEDS: LATANOPROST 0.005% 2.5 ML OPH BOTH EYES (21:26)
[2018-12-07] MEDS: GENTAMICIN 0.3% 5 ML OPH RIGHT EYE ×6 (01:00→21:33)
[2018-12-07] MEDS: ALBUTEROL/IPRATROPIUM (NEB) 3 ML AMP HHN ×6 (01:23→20:57)
[2018-12-07] MEDS: ACETAMINOPHEN 325 MG TAB PO ×2 (01:29→21:30)
[2018-12-07] MEDS: ACCUCHECK AT 2AM (Patients on SS coverage) XX (01:36)
[2018-12-07] MEDS: LANSOPRAZOLE 30 MG CAP PO ×2 (06:06→14:23)
[2018-12-07] MEDS: LEVOTHYROXINE 75 MCG TAB PO (06:06)
[2018-12-07] MEDS: FERROUS SULFATE (EC) 325 MG TAB PO ×2 (06:06→17:09)
[2018-12-07] MEDS: metroNIDAZOLE 500 MG TAB PO ×3 (06:06→21:32)
[2018-12-07] MEDS: Insulin NOVOLOG SS MILD Algorithm (SS with meals and bedtime) SC ×4 (07:05→21:00)
[2018-12-07] MEDS: LUBIPROSTONE 24 MCG CAP PO ×2 (08:15→17:09)
[2018-12-07] MEDS: LACTULOSE 30ML CUP PO (08:58)
[2018-12-07] MEDS: MEGESTROL (40 MG/ML) 10ML CUP PO (08:59)
[2018-12-07] MEDS: TIOTROPIUM 18 MCG CAPSULE INHA DEV INH (08:59)
[2018-12-07] MEDS: LINAGLIPTIN 5 MG TABLET PO (08:59)
[2018-12-07] MEDS: CYCLOSPORINE 0.05% OPH DROPERETTE BOTH EYES ×2 (08:59→21:31)
[2018-12-07] MEDS: DOCUSATE SODIUM 10 MG/ML (10ML CUP) PO ×2 (09:00→21:33)
[2018-12-07] MEDS: FUROSEMIDE 20 MG TAB PO (09:00)
[2018-12-07] MEDS: ALLOPURINOL 100 MG TAB PO (09:00)
[2018-12-07] MEDS: APIXABAN 5 MG TABLET PO ×2 (09:00→21:31)
[2018-12-07] MEDS: DOXYCYCLINE 100 MG TAB PO (09:00)
[2018-12-07] MEDS: POLYETHYLENE GLYCOL 17 GM PACKET PO (09:00)
[2018-12-07] MEDS: MECLIZINE 25 MG TAB PO ×3 (09:00→21:31)
[2018-12-07] MEDS: SOTALOL 80 MG TAB PO ×2 (09:01→21:32)
[2018-12-07] MEDS: CIPROFLOXACIN 500 MG TAB PO (17:09)
[2018-12-07] MEDS: LATANOPROST 0.005% 2.5 ML OPH BOTH EYES (21:00)
[2018-12-07] MEDS: ALPRAZOLAM 0.25 MG TAB PO (21:31)
[2018-12-07] MEDS: CALCIUM CARBONATE 500 MG CHEW TAB PO (21:31)
[2018-12-07] MEDS: SENNA TAB PO (21:34)
[2018-12-08] MEDS: GENTAMICIN 0.3% 5 ML OPH RIGHT EYE ×6 (01:00→21:01)
[2018-12-08] MEDS: ALBUTEROL/IPRATROPIUM (NEB) 3 ML AMP HHN ×6 (01:26→20:00)
[2018-12-08] MEDS: ACCUCHECK AT 2AM (Patients on SS coverage) XX (02:00)
[2018-12-08] MEDS: LEVOTHYROXINE 75 MCG TAB PO (06:19)
[2018-12-08] MEDS: metroNIDAZOLE 500 MG TAB PO ×2 (06:19→12:57)
[2018-12-08] MEDS: LANSOPRAZOLE 30 MG CAP PO ×2 (06:19→18:03)
[2018-12-08] MEDS: CIPROFLOXACIN 500 MG TAB PO ×2 (06:19→18:00)
[2018-12-08] MEDS: FERROUS SULFATE (EC) 325 MG TAB PO ×2 (06:22→18:03)
[2018-12-08] MEDS: LUBIPROSTONE 24 MCG CAP PO ×2 (07:35→18:03)
[2018-12-08] MEDS: Insulin NOVOLOG SS MILD Algorithm (SS with meals and bedtime) SC ×4 (08:00→21:00)
[2018-12-08] MEDS: LINAGLIPTIN 5 MG TABLET PO (09:03)
[2018-12-08] MEDS: TIOTROPIUM 18 MCG CAPSULE INHA DEV INH (09:03)
[2018-12-08] MEDS: APIXABAN 5 MG TABLET PO ×2 (09:04→20:58)
[2018-12-08] MEDS: POLYETHYLENE GLYCOL 17 GM PACKET PO (09:04)
[2018-12-08] MEDS: ALLOPURINOL 100 MG TAB PO (09:04)
[2018-12-08] MEDS: MECLIZINE 25 MG TAB PO ×3 (09:04→20:57)
[2018-12-08] MEDS: CYCLOSPORINE 0.05% OPH DROPERETTE BOTH EYES ×2 (09:04→21:00)
[2018-12-08] MEDS: MEGESTROL (40 MG/ML) 10ML CUP PO (09:07)
[2018-12-08] MEDS: DOCUSATE SODIUM 10 MG/ML (10ML CUP) PO ×2 (09:07→21:00)
[2018-12-08] MEDS: SOTALOL 80 MG TAB PO ×2 (09:10→20:59)
[2018-12-08] MEDS: FUROSEMIDE 20 MG TAB PO (09:11)
[2018-12-08] MEDS: SENNA TAB PO (20:57)
[2018-12-08] MEDS: LATANOPROST 0.005% 2.5 ML OPH BOTH EYES (21:00)
[2018-12-09] MEDS: GENTAMICIN 0.3% 5 ML OPH RIGHT EYE ×6 (01:00→21:00)
[2018-12-09] MEDS: ALBUTEROL/IPRATROPIUM (NEB) 3 ML AMP HHN ×6 (01:07→20:21)
[2018-12-09] MEDS: ACCUCHECK AT 2AM (Patients on SS coverage) XX (02:00)
[2018-12-09] MEDS: FERROUS SULFATE (EC) 325 MG TAB PO ×2 (06:51→17:43)
[2018-12-09] MEDS: LEVOTHYROXINE 75 MCG TAB PO (06:51)
[2018-12-09] MEDS: CIPROFLOXACIN 500 MG TAB PO ×2 (06:51→17:43)
[2018-12-09] MEDS: LANSOPRAZOLE 30 MG CAP PO ×2 (06:51→17:43)
[2018-12-09] MEDS: Insulin NOVOLOG SS MILD Algorithm (SS with meals and bedtime) SC ×4 (07:05→21:00)
[2018-12-09] MEDS: LUBIPROSTONE 24 MCG CAP PO ×2 (08:13→17:45)
[2018-12-09] MEDS: LINAGLIPTIN 5 MG TABLET PO (08:13)
[2018-12-09] MEDS: POLYETHYLENE GLYCOL 17 GM PACKET PO (09:42)
[2018-12-09] MEDS: CYCLOSPORINE 0.05% OPH DROPERETTE BOTH EYES ×2 (09:43→21:20)
[2018-12-09] MEDS: TIOTROPIUM 18 MCG CAPSULE INHA DEV INH (09:43)
[2018-12-09] MEDS: MEGESTROL (40 MG/ML) 10ML CUP PO (09:43)
[2018-12-09] MEDS: DOCUSATE SODIUM 10 MG/ML (10ML CUP) PO ×2 (09:43→21:00)
[2018-12-09] MEDS: SOTALOL 80 MG TAB PO ×2 (09:44→21:00)
[2018-12-09] MEDS: MECLIZINE 25 MG TAB PO ×3 (09:44→21:00)
[2018-12-09] MEDS: APIXABAN 5 MG TABLET PO ×2 (09:44→21:20)
[2018-12-09] MEDS: ALLOPURINOL 100 MG TAB PO (09:44)
[2018-12-09] MEDS: FUROSEMIDE 20 MG TAB PO (09:45)
[2018-12-09] MEDS: REFRESH LIQUIGEL BOTH EYES (19:07)
[2018-12-09] MEDS: SENNA TAB PO (21:20)
[2018-12-09] MEDS: LATANOPROST 0.005% 2.5 ML OPH BOTH EYES (21:20)
[2018-12-09] MEDS: ALPRAZOLAM 0.25 MG TAB PO (21:21)
[2018-12-10] MEDS: ALBUTEROL/IPRATROPIUM (NEB) 3 ML AMP HHN ×6 (00:57→20:55)
[2018-12-10] MEDS: ACCUCHECK AT 2AM (Patients on SS coverage) XX (02:00)
[2018-12-10] MEDS: CIPROFLOXACIN 500 MG TAB PO ×2 (06:31→17:51)
[2018-12-10] MEDS: LEVOTHYROXINE 75 MCG TAB PO (06:31)
[2018-12-10] MEDS: LANSOPRAZOLE 30 MG CAP PO ×2 (06:31→17:51)
[2018-12-10] MEDS: FERROUS SULFATE (EC) 325 MG TAB PO ×2 (06:32→17:51)
[2018-12-10] MEDS: FUROSEMIDE 20 MG TAB PO (06:32)
[2018-12-10] MEDS: Insulin NOVOLOG SS MILD Algorithm (SS with meals and bedtime) SC ×4 (07:05→22:32)
[2018-12-10] MEDS: ALLOPURINOL 100 MG TAB PO (09:54)
[2018-12-10] MEDS: DOCUSATE SODIUM 10 MG/ML (10ML CUP) PO ×2 (09:54→22:09)
[2018-12-10] MEDS: POLYETHYLENE GLYCOL 17 GM PACKET PO (09:54)
[2018-12-10] MEDS: APIXABAN 5 MG TABLET PO ×2 (09:54→22:05)
[2018-12-10] MEDS: CYCLOSPORINE 0.05% OPH DROPERETTE BOTH EYES ×2 (09:54→22:05)
[2018-12-10] MEDS: MECLIZINE 25 MG TAB PO ×3 (09:54→22:26)
[2018-12-10] MEDS: MEGESTROL (40 MG/ML) 10ML CUP PO (09:54)
[2018-12-10] MEDS: TIOTROPIUM 18 MCG CAPSULE INHA DEV INH (09:54)
[2018-12-10] MEDS: LINAGLIPTIN 5 MG TABLET PO (09:54)
[2018-12-10] MEDS: LUBIPROSTONE 24 MCG CAP PO ×2 (09:57→17:51)
[2018-12-10] MEDS: SOTALOL 80 MG TAB PO ×2 (10:07→21:00)
[2018-12-10] MEDS: FUROSEMIDE 20 MG INJ IV (15:58)
[2018-12-10] MEDS: SENNA TAB PO (22:04)
[2018-12-10] MEDS: LATANOPROST 0.005% 2.5 ML OPH BOTH EYES (22:33)
[2018-12-11] MEDS: ACCUCHECK AT 2AM (Patients on SS coverage) XX (02:00)
[2018-12-11] MEDS: ALBUTEROL/IPRATROPIUM (NEB) 3 ML AMP HHN ×6 (02:00→20:34)
[2018-12-11] MEDS: LEVOTHYROXINE 75 MCG TAB PO (06:52)
[2018-12-11] MEDS: LANSOPRAZOLE 30 MG CAP PO ×2 (06:52→18:09)
[2018-12-11] MEDS: CIPROFLOXACIN 500 MG TAB PO ×2 (06:52→17:14)
[2018-12-11] MEDS: FERROUS SULFATE (EC) 325 MG TAB PO ×2 (06:52→19:34)
[2018-12-11] MEDS: MAGNESIUM HYDROXIDE 30ML CUP PO (06:52)
[2018-12-11] MEDS: Insulin NOVOLOG SS MILD Algorithm (SS with meals and bedtime) SC ×4 (07:05→20:38)
[2018-12-11] MEDS: LUBIPROSTONE 24 MCG CAP PO ×2 (08:17→17:14)
[2018-12-11] MEDS: SOTALOL 80 MG TAB PO ×2 (08:56→20:25)
[2018-12-11] MEDS: CYCLOSPORINE 0.05% OPH DROPERETTE BOTH EYES ×2 (08:56→20:25)
[2018-12-11] MEDS: MEGESTROL (40 MG/ML) 10ML CUP PO (08:56)
[2018-12-11] MEDS: DOCUSATE SODIUM 10 MG/ML (10ML CUP) PO ×2 (08:56→20:37)
[2018-12-11] MEDS: APIXABAN 5 MG TABLET PO ×2 (08:57→20:25)
[2018-12-11] MEDS: MECLIZINE 25 MG TAB PO ×3 (08:57→20:26)
[2018-12-11] MEDS: ALLOPURINOL 100 MG TAB PO (08:57)
[2018-12-11] MEDS: LINAGLIPTIN 5 MG TABLET PO (08:57)
[2018-12-11] MEDS: POLYETHYLENE GLYCOL 17 GM PACKET PO (08:58)
[2018-12-11] MEDS: BARIUM SULFATE 135 ML (E-Z HD) PO (10:13)
[2018-12-11] MEDS: TIOTROPIUM 18 MCG CAPSULE INHA DEV INH (10:23)
[2018-12-11] MEDS: FUROSEMIDE 20 MG INJ IV (17:13)
[2018-12-11 17:21] LABS: ALBUMIN 2.8 g/dl (3.3-4.9)
[2018-12-11] MEDS: ALPRAZOLAM 0.25 MG TAB PO (20:24)
[2018-12-11] MEDS: ACETAMINOPHEN 325 MG TAB PO (20:25)
[2018-12-11] MEDS: SENNA TAB PO (20:25)
[2018-12-11] MEDS: LATANOPROST 0.005% 2.5 ML OPH BOTH EYES (20:35)
[2018-12-12] MEDS: ALBUTEROL/IPRATROPIUM (NEB) 3 ML AMP HHN ×6 (01:31→21:46)
[2018-12-12] MEDS: ACCUCHECK AT 2AM (Patients on SS coverage) XX (02:00)
[2018-12-12] MEDS: LEVOTHYROXINE 75 MCG TAB PO (06:46)
[2018-12-12] MEDS: CIPROFLOXACIN 500 MG TAB PO ×2 (06:46→17:33)
[2018-12-12] MEDS: FERROUS SULFATE (EC) 325 MG TAB PO ×2 (06:46→18:36)
[2018-12-12] MEDS: LANSOPRAZOLE 30 MG CAP PO ×2 (06:46→17:34)
[2018-12-12] MEDS: LUBIPROSTONE 24 MCG CAP PO ×2 (07:39→17:34)
[2018-12-12] MEDS: Insulin NOVOLOG SS MILD Algorithm (SS with meals and bedtime) SC ×4 (07:52→21:00)
[2018-12-12 07:53] LABS: ANION GAP 8 (5-13); BLOOD UREA NITROGEN 23 mg/dl (7-20); CALCIUM 8.6 mg/dl (8.4-10.2); CARBON DIOXIDE 29 mmol/L (21-31); CHLORIDE 103 mmol/L (97-110); CREATININE 1.34 mg/dl (0.44-1.00); GLUCOSE 139 mg/dl (70-220); POTASSIUM 3.8 mmol/L (3.5-5.1); SODIUM 140 mmol/L (135-144)
[2018-12-12] MEDS: DOCUSATE SODIUM 10 MG/ML (10ML CUP) PO ×2 (09:00→21:23)
[2018-12-12] MEDS ORDERED: FUROSEMIDE 20 MG INJ IV (09:00)
[2018-12-12] MEDS: POLYETHYLENE GLYCOL 17 GM PACKET PO (09:00)
[2018-12-12] MEDS: LINAGLIPTIN 5 MG TABLET PO (09:46)
[2018-12-12] MEDS: MEGESTROL (40 MG/ML) 10ML CUP PO (09:46)
[2018-12-12] MEDS: TIOTROPIUM 18 MCG CAPSULE INHA DEV INH (09:46)
[2018-12-12] MEDS: MECLIZINE 25 MG TAB PO ×3 (09:46→21:18)
[2018-12-12] MEDS: CYCLOSPORINE 0.05% OPH DROPERETTE BOTH EYES ×2 (09:46→21:19)
[2018-12-12] MEDS: APIXABAN 5 MG TABLET PO ×2 (09:47→21:18)
[2018-12-12] MEDS: FUROSEMIDE 20 MG TAB PO (09:47)
[2018-12-12] MEDS: SOTALOL 80 MG TAB PO ×2 (09:47→21:32)
[2018-12-12] MEDS: ALLOPURINOL 100 MG TAB PO (09:48)
[2018-12-12] MEDS: LATANOPROST 0.005% 2.5 ML OPH BOTH EYES (21:00)
[2018-12-12] MEDS: SENNA TAB PO (21:18)
[2018-12-12] MEDS: ALPRAZOLAM 0.25 MG TAB PO (21:18)
[2018-12-12] MEDS: ALBUMIN HUMAN 25% 50 ML IV (21:48)
[2018-12-13] MEDS: ALBUTEROL/IPRATROPIUM (NEB) 3 ML AMP HHN ×6 (01:01→21:26)
[2018-12-13] MEDS: ACCUCHECK AT 2AM (Patients on SS coverage) XX (02:00)
[2018-12-13] MEDS: CIPROFLOXACIN 500 MG TAB PO ×2 (06:23→17:39)
[2018-12-13] MEDS: FERROUS SULFATE (EC) 325 MG TAB PO ×2 (06:23→17:39)
[2018-12-13] MEDS: LANSOPRAZOLE 30 MG CAP PO ×2 (06:23→17:39)
[2018-12-13] MEDS: LEVOTHYROXINE 75 MCG TAB PO (06:23)
[2018-12-13] MEDS: LUBIPROSTONE 24 MCG CAP PO ×2 (08:07→17:39)
[2018-12-13] MEDS: LINAGLIPTIN 5 MG TABLET PO (08:36)
[2018-12-13] MEDS: Insulin NOVOLOG SS MILD Algorithm (SS with meals and bedtime) SC ×4 (08:36→20:54)
[2018-12-13] MEDS: POLYETHYLENE GLYCOL 17 GM PACKET PO (10:10)
[2018-12-13] MEDS: TIOTROPIUM 18 MCG CAPSULE INHA DEV INH (10:11)
[2018-12-13] MEDS: MEGESTROL (40 MG/ML) 10ML CUP PO (10:11)
[2018-12-13] MEDS: DOCUSATE SODIUM 10 MG/ML (10ML CUP) PO ×2 (10:11→21:04)
[2018-12-13] MEDS: SOTALOL 80 MG TAB PO ×2 (10:11→21:06)
[2018-12-13] MEDS: ALLOPURINOL 100 MG TAB PO (10:12)
[2018-12-13] MEDS: APIXABAN 5 MG TABLET PO ×2 (10:12→21:04)
[2018-12-13] MEDS: MECLIZINE 25 MG TAB PO ×3 (10:12→21:00)
[2018-12-13] MEDS: CYCLOSPORINE 0.05% OPH DROPERETTE BOTH EYES ×2 (10:12→21:04)
[2018-12-13] MEDS: FUROSEMIDE 20 MG TAB PO (10:12)
[2018-12-13] MEDS: ALPRAZOLAM 0.25 MG TAB PO (21:02)
[2018-12-13] MEDS: SENNA TAB PO (21:04)
[2018-12-13] MEDS: LATANOPROST 0.005% 2.5 ML OPH BOTH EYES (21:18)
[2018-12-14] MEDS: ALBUTEROL/IPRATROPIUM (NEB) 3 ML AMP HHN ×6 (00:30→21:16)
[2018-12-14] MEDS: ACCUCHECK AT 2AM (Patients on SS coverage) XX (02:00)
[2018-12-14] MEDS: CIPROFLOXACIN 500 MG TAB PO ×2 (06:29→17:38)
[2018-12-14] MEDS: LEVOTHYROXINE 75 MCG TAB PO (06:30)
[2018-12-14] MEDS: LANSOPRAZOLE 30 MG CAP PO ×2 (06:30→17:38)
[2018-12-14] MEDS: FERROUS SULFATE (EC) 325 MG TAB PO ×2 (06:30→17:38)
[2018-12-14] MEDS: LUBIPROSTONE 24 MCG CAP PO ×2 (07:58→17:38)
[2018-12-14] MEDS: LINAGLIPTIN 5 MG TABLET PO (07:58)
[2018-12-14] MEDS: Insulin NOVOLOG SS MILD Algorithm (SS with meals and bedtime) SC ×4 (07:59→21:14)
[2018-12-14] MEDS: MEGESTROL (40 MG/ML) 10ML CUP PO (08:50)
[2018-12-14] MEDS: POLYETHYLENE GLYCOL 17 GM PACKET PO (08:50)
[2018-12-14] MEDS: APIXABAN 5 MG TABLET PO ×2 (08:51→21:29)
[2018-12-14] MEDS: TIOTROPIUM 18 MCG CAPSULE INHA DEV INH (08:51)
[2018-12-14] MEDS: DOCUSATE SODIUM 10 MG/ML (10ML CUP) PO ×2 (08:51→21:33)
[2018-12-14] MEDS: ALLOPURINOL 100 MG TAB PO (08:52)
[2018-12-14] MEDS: CYCLOSPORINE 0.05% OPH DROPERETTE BOTH EYES ×2 (08:52→21:32)
[2018-12-14] MEDS: MECLIZINE 25 MG TAB PO ×3 (08:52→21:32)
[2018-12-14] MEDS: SOTALOL 80 MG TAB PO ×2 (08:52→21:00)
[2018-12-14] MEDS: FUROSEMIDE 20 MG TAB PO ×3 (09:00→17:40)
[2018-12-14] MEDS: ALPRAZOLAM 0.25 MG TAB PO (21:27)
[2018-12-14] MEDS: ACETAMINOPHEN 325 MG TAB PO (21:28)
[2018-12-14] MEDS: SENNA TAB PO (21:32)
[2018-12-14] MEDS: LATANOPROST 0.005% 2.5 ML OPH BOTH EYES (21:34)
[2018-12-15] MEDS ORDERED: BENZONATATE 100 MG CAP PO
[2018-12-15] MEDS: traZODone 50 MG TAB PO (00:21)
[2018-12-15] MEDS: ALPRAZOLAM 0.25 MG TAB PO ×2 (00:21→22:26)
[2018-12-15] MEDS: ALBUTEROL/IPRATROPIUM (NEB) 3 ML AMP HHN ×6 (01:00→20:20)
[2018-12-15] MEDS: ACCUCHECK AT 2AM (Patients on SS coverage) XX ×2 (02:00→05:21)
[2018-12-15] MEDS: FERROUS SULFATE (EC) 325 MG TAB PO ×2 (06:53→17:45)
[2018-12-15] MEDS: LANSOPRAZOLE 30 MG CAP PO ×2 (06:54→17:44)
[2018-12-15] MEDS: FUROSEMIDE 20 MG TAB PO ×2 (06:54→18:38)
[2018-12-15] MEDS: LEVOTHYROXINE 75 MCG TAB PO (06:55)
[2018-12-15] MEDS: Insulin NOVOLOG SS MILD Algorithm (SS with meals and bedtime) SC ×4 (08:10→20:38)
[2018-12-15] MEDS: DOCUSATE SODIUM 10 MG/ML (10ML CUP) PO ×2 (08:24→20:39)
[2018-12-15] MEDS: TIOTROPIUM 18 MCG CAPSULE INHA DEV INH (08:24)
[2018-12-15] MEDS: LINAGLIPTIN 5 MG TABLET PO (08:24)
[2018-12-15] MEDS: MEGESTROL (40 MG/ML) 10ML CUP PO (08:24)
[2018-12-15] MEDS: MECLIZINE 25 MG TAB PO ×3 (08:25→20:44)
[2018-12-15] MEDS: POLYETHYLENE GLYCOL 17 GM PACKET PO (08:25)
[2018-12-15] MEDS: SOTALOL 80 MG TAB PO ×2 (08:25→20:40)
[2018-12-15] MEDS: APIXABAN 5 MG TABLET PO ×2 (08:25→20:41)
[2018-12-15] MEDS: LUBIPROSTONE 24 MCG CAP PO ×2 (08:25→17:44)
[2018-12-15] MEDS: ALLOPURINOL 100 MG TAB PO (08:25)
[2018-12-15] MEDS: CYCLOSPORINE 0.05% OPH DROPERETTE BOTH EYES ×3 (08:25→21:00)
[2018-12-15 09:06] LABS: ANION GAP 10 (5-13); BLOOD UREA NITROGEN 31 mg/dl (7-20); CALCIUM 8.9 mg/dl (8.4-10.2); CARBON DIOXIDE 27 mmol/L (21-31); CHLORIDE 102 mmol/L (97-110); CREATININE 1.46 mg/dl (0.44-1.00); GLUCOSE 156 mg/dl (70-220); MAGNESIUM 2.5 mg/dl (1.7-2.5); SODIUM 139 mmol/L (135-144)
[2018-12-15] MEDS: LATANOPROST 0.005% 2.5 ML OPH BOTH EYES ×2 (20:42→21:00)
[2018-12-15] MEDS: SENNA TAB PO ×2 (20:43→21:00)
[2018-12-15] MEDS: ACETAMINOPHEN 325 MG TAB PO (22:26)
[2018-12-16] MEDS: ALBUTEROL/IPRATROPIUM (NEB) 3 ML AMP HHN ×6 (00:52→21:24)
[2018-12-16] MEDS: ACCUCHECK AT 2AM (Patients on SS coverage) XX (02:00)
[2018-12-16] MEDS: FERROUS SULFATE (EC) 325 MG TAB PO ×3 (05:22→17:49)
[2018-12-16] MEDS: LANSOPRAZOLE 30 MG CAP PO ×2 (05:22→18:00)
[2018-12-16] MEDS: FUROSEMIDE 20 MG TAB PO ×3 (05:23→17:49)
[2018-12-16] MEDS: LEVOTHYROXINE 75 MCG TAB PO (06:10)
[2018-12-16] MEDS: Insulin NOVOLOG SS MILD Algorithm (SS with meals and bedtime) SC ×4 (07:05→21:00)
[2018-12-16] MEDS: LUBIPROSTONE 24 MCG CAP PO ×2 (07:35→17:35)
[2018-12-16] MEDS: SOTALOL 80 MG TAB PO ×2 (09:00→21:00)
[2018-12-16] MEDS: MECLIZINE 25 MG TAB PO ×3 (11:05→20:53)
[2018-12-16] MEDS: CYCLOSPORINE 0.05% OPH DROPERETTE BOTH EYES ×2 (11:05→21:00)
[2018-12-16] MEDS: ALLOPURINOL 100 MG TAB PO (11:05)
[2018-12-16] MEDS: APIXABAN 5 MG TABLET PO ×2 (11:07→20:58)
[2018-12-16] MEDS: POLYETHYLENE GLYCOL 17 GM PACKET PO (11:08)
[2018-12-16] MEDS: MEGESTROL (40 MG/ML) 10ML CUP PO (11:08)
[2018-12-16] MEDS: LINAGLIPTIN 5 MG TABLET PO (11:08)
[2018-12-16] MEDS: DOCUSATE SODIUM 10 MG/ML (10ML CUP) PO ×2 (11:09→20:53)
[2018-12-16] MEDS: TIOTROPIUM 18 MCG CAPSULE INHA DEV INH (11:09)
[2018-12-16] MEDS: SENNA TAB PO (20:52)
[2018-12-16] MEDS: ACETAMINOPHEN 325 MG TAB PO (20:53)
[2018-12-16] MEDS: ALPRAZOLAM 0.25 MG TAB PO (20:53)
[2018-12-16] MEDS: LATANOPROST 0.005% 2.5 ML OPH BOTH EYES (21:00)
[2018-12-17] MEDS: ALBUTEROL/IPRATROPIUM (NEB) 3 ML AMP HHN ×4 (01:00→12:12)
[2018-12-17] MEDS: ACCUCHECK AT 2AM (Patients on SS coverage) XX (02:00)
[2018-12-17] MEDS: LANSOPRAZOLE 30 MG CAP PO (06:26)
[2018-12-17] MEDS: LEVOTHYROXINE 75 MCG TAB PO (06:27)
[2018-12-17] MEDS: FERROUS SULFATE (EC) 325 MG TAB PO (06:27)
[2018-12-17] MEDS: Insulin NOVOLOG SS MILD Algorithm (SS with meals and bedtime) SC (07:05)
[2018-12-17] MEDS: LINAGLIPTIN 5 MG TABLET PO (07:56)
[2018-12-17 08:19] LABS: ANION GAP 10 (5-13); BLOOD UREA NITROGEN 38 mg/dl (7-20); CALCIUM 8.7 mg/dl (8.4-10.2); CARBON DIOXIDE 25 mmol/L (21-31); CHLORIDE 103 mmol/L (97-110); CREATININE 1.65 mg/dl (0.44-1.00); GLUCOSE 125 mg/dl (70-220); POTASSIUM 4.1 mmol/L (3.5-5.1); SODIUM 138 mmol/L (135-144)
[2018-12-17] MEDS: SOTALOL 80 MG TAB PO (09:00)
[2018-12-17] MEDS: APIXABAN 5 MG TABLET PO (09:25)
[2018-12-17] MEDS: DOCUSATE SODIUM 10 MG/ML (10ML CUP) PO (09:25)
[2018-12-17] MEDS: MEGESTROL (40 MG/ML) 10ML CUP PO (09:25)
[2018-12-17] MEDS: MECLIZINE 25 MG TAB PO (09:27)
[2018-12-17] MEDS: CYCLOSPORINE 0.05% OPH DROPERETTE BOTH EYES (09:27)
[2018-12-17] MEDS: POLYETHYLENE GLYCOL 17 GM PACKET PO (09:27)
[2018-12-17] MEDS: TIOTROPIUM 18 MCG CAPSULE INHA DEV INH (09:27)
[2018-12-17] MEDS: FUROSEMIDE 20 MG TAB PO (09:29)
[2018-12-17] MEDS: ALLOPURINOL 100 MG TAB PO (09:29)
[2018-12-17] MEDS: LUBIPROSTONE 24 MCG CAP PO (09:32)
== END 2018-12-17 11:45 | disposition home health service (06) | DRG 189 ==
LOC: VRC 18:51
DX: J96.20 Acute and chronic respiratory failure, unspecified whether with hypoxia or hypercapnia (principal); J69.0 Pneumonitis due to inhalation of food and vomit; I13.0 Hypertensive heart and chronic kidney disease with heart failure and stage 1 through stage 4 chronic kidney disease, or unspecified chronic kidney disease; I50.32 Chronic diastolic (congestive) heart failure; N39.0 Urinary tract infection, site not specified; N17.9 Acute kidney failure, unspecified; I48.0 Paroxysmal atrial fibrillation; E11.22 Type 2 diabetes mellitus with diabetic chronic kidney disease; N18.9 Chronic kidney disease, unspecified; D63.1 Anemia in chronic kidney disease; E03.9 Hypothyroidism, unspecified; Z74.09 Other reduced mobility; R53.81 Other malaise; R13.12 Dysphagia, oropharyngeal phase; F06.31 Mood disorder due to known physiological condition with depressive features; F06.8 Other specified mental disorders due to known physiological condition
CPT/HCPCS: 74230; 80048; 80053; 81001; 82040; 82962; 83735; 85025; 87081; 87086; 92526; 92610; 92611; 93970; 94640; 94664; 97110; 97112; 97116; 97163; 97167; 97530; 97535; 97542